=== PATIENT | male | born 1985 | race Asian ===

== ENCOUNTER 2020-01-03 15:48 | Inpatient (IN) | payer BC ==
[~2020-01-03] VITALS: Ht 165.1 cm; Wt 66.0 kg
[2020-01-03 16:40] VITALS: BP 145/71
[2020-01-03] MEDS ORDERED: DIAZEPAM 5 MG TABLET PO PRN (17:00)
[2020-01-03] MEDS ORDERED: OxyCODONE HCL 10 MG IR TABLET PO PRN ×2 (17:00)
[2020-01-03] MEDS: ACETAMINOPHEN 500 MG TABLET PO SCH (18:31)
[2020-01-03] MEDS: OxyCODONE HCL 5 MG IR TABLET PO PRN ×2 (18:43→23:12)
[2020-01-03] MEDS: GABAPENTIN 300 MG CAPSULE PO SCH (20:12)
[2020-01-03] MEDS: SENNA/DOCUSATE SODIUM 8.6-50 MG TABLET PO SCH (20:12)
[2020-01-03] MEDS: DEXAMETHASONE 4 MG TABLET PO SCH (20:39)
[2020-01-03 23:12] VITALS: BP 126/76
[2020-01-04] MEDS: ACETAMINOPHEN 500 MG TABLET PO SCH ×3 (00:31→17:01)
[2020-01-04] MEDS ORDERED: NALOXONE HCL 1 MG/ML 2 ML SYG IVP PRN (01:30)
[2020-01-04] MEDS ORDERED: NALOXONE HCL 0.4 MG/ML VIAL IVP PRN (01:32)
[2020-01-04] MEDS: HYDROmorphone 2 MG/ML SYRINGE IVP PRN ×4 (01:42→21:56)
[2020-01-04] MEDS: OxyCODONE HCL 5 MG IR TABLET PO PRN ×2 (06:14→13:40)
[2020-01-04] MEDS ORDERED: MethylPREDNISolone 4 MG TABLET PO SCH (06:30)
[2020-01-04 07:14] VITALS: BP 132/82
[2020-01-04] MEDS: POLYETHYLENE GLYCOL 3350 17 GM PACKET PO SCH ×2 (07:41→07:45)
[2020-01-04] MEDS: DEXAMETHASONE 4 MG TABLET PO SCH (07:42)
[2020-01-04] MEDS: GABAPENTIN 300 MG CAPSULE PO SCH ×3 (07:42→21:25)
[2020-01-04] MEDS: SENNA/DOCUSATE SODIUM 8.6-50 MG TABLET PO SCH ×2 (07:42→21:25)
[2020-01-04 07:46] LABS: BASOPHILS % (AUTO) 0.2 % (0.0-2.0); EOSINOPHILS % (AUTO) 0 % (1.0-6.0); HEMATOCRIT 27.1 % (41-53); HEMOGLOBIN 9.1 g/dL (13.5-17.5); LYMPHOCYTES # (AUTO) 0.6 K/uL (1.0-4.8); LYMPHOCYTES % (AUTO) 7.8 % (22.0-44.0); MEAN CORPUSCULAR HEMOGLOBIN 28.7 pg (26.0-34.0); MEAN CORPUSCULAR HGB CONC 33.4 G/dL (31.0-37.0); MEAN CORPUSCULAR VOLUME 86 fL (80-100); MONOCYTES # (AUTO) 0.5 K/uL (0.1-1.0); MONOCYTES % (AUTO) 5.6 % (2.0-9.0); NEUTROPHILS # (AUTO) 7.2 K/uL (1.8-7.7); PLATELET COUNT (AUTO) 391 K/uL (150-450); RED BLOOD CELL COUNT(AUTO) 3.16 MIL/uL (4.50-5.90); RED CELL DISTRIBUTION WIDTH 14.6 % (11.5-14.5)
[2020-01-04 07:56] LABS: NEUTROPHILS % (AUTO) 86.4 % (40.0-70.0)
[2020-01-04 08:51] LABS: ALANINE AMINOTRANSFERASE 56 U/L (12-78); ALBUMIN 3.1 g/dL (3.4-5.0); ALKALINE PHOSPHATASE 102 U/L (46-116); ANION GAP 10 mmol/L (8-16); ASPARTATE AMINOTRANSFERASE 26 U/L (15-37); BILIRUBIN,TOTAL 0.3 mg/dL (0.1-1.0); CALCIUM, TOTAL 8.5 mg/dL (8.8-10.5); CARBON DIOXIDE 26 mmol/L (22-29); CHLORIDE 104 mmol/L (98-107); CREATININE 0.66 mg/dL (0.60-1.30); GLOMERULAR FILTR. RATE CALC > 60 mL/min (>60); GLUCOSE,RANDOM 119 mg/dL (70-110); POTASSIUM 3.9 mmol/L (3.5-5.1); SODIUM SERUM 140 mmol/L (136-145); TOTAL PROTEIN, SERUM 6.3 g/dL (6.4-8.2); UREA NITROGEN, BLOOD 21 mg/dL (7-18)
[2020-01-04] MEDS: DULoxetine HCL 30 MG CAPSULE PO SCH (12:08)
[2020-01-04] MEDS ORDERED: OxyCODONE HCL 5 MG IR TABLET PO ONE (14:00)
[2020-01-04] MEDS ORDERED: MethylPREDNISolone 4 MG TABLET PO ONE ×3 (15:00→21:00)
[2020-01-04 15:17] VITALS: BP 121/71
[2020-01-04] MEDS: AMITRIPTYLINE HCL 25 MG TABLET PO SCH (21:25)
[2020-01-05 01:10] VITALS: BP 120/77
[2020-01-05] MEDS: OxyCODONE HCL 5 MG IR TABLET PO PRN ×3 (01:10→10:04)
[2020-01-05] MEDS: ACETAMINOPHEN 500 MG TABLET PO SCH ×3 (01:11→17:25)
[2020-01-05] MEDS ORDERED: MethylPREDNISolone 4 MG TABLET PO SCH ×2 (06:30→12:30)
[2020-01-05 07:48] VITALS: BP 120/76
[2020-01-05] MEDS: GABAPENTIN 300 MG CAPSULE PO SCH ×3 (07:48→20:51)
[2020-01-05] MEDS: POLYETHYLENE GLYCOL 3350 17 GM PACKET PO SCH ×2 (09:00→10:05)
[2020-01-05] MEDS: DULoxetine HCL 30 MG CAPSULE PO SCH (10:05)
[2020-01-05] MEDS: SENNA/DOCUSATE SODIUM 8.6-50 MG TABLET PO SCH ×2 (10:05→20:51)
[2020-01-05] MEDS: HYDROmorphone 2 MG/ML SYRINGE IVP PRN ×4 (10:10→23:43)
[2020-01-05 11:25] VITALS: BP 118/79
[2020-01-05] MEDS ORDERED: MethylPREDNISolone 4 MG TABLET PO ONE ×4 (12:30→21:00)
[2020-01-05 12:51] VITALS: BP 120/82
[2020-01-05] MEDS: OxyCODONE HCL/ACETAMINOPHEN 10-325 MG TABLET PO PRN ×2 (12:51→20:53)
[2020-01-05] MEDS: ENOXAPARIN SODIUM 40 MG/0.4 ML PF SYRINGE SQ SCH (12:52)
[2020-01-05] MEDS ORDERED: OxyCODONE HCL/ACETAMINOPHEN 10-325 MG TABLET PO ONE (13:00)
[2020-01-05 15:39] VITALS: BP 113/67
[2020-01-05] MEDS: AMITRIPTYLINE HCL 25 MG TABLET PO SCH (20:51)
[2020-01-05 23:43] VITALS: BP 106/62
[2020-01-06] MEDS: OxyCODONE HCL/ACETAMINOPHEN 10-325 MG TABLET PO PRN ×3 (01:31→22:52)
[2020-01-06] MEDS: ACETAMINOPHEN 500 MG TABLET PO SCH ×3 (01:31→17:26)
[2020-01-06] MEDS ORDERED: MethylPREDNISolone 4 MG TABLET PO ONE ×4 (06:30→21:00)
[2020-01-06 07:42] VITALS: BP 126/79
[2020-01-06] MEDS: DULoxetine HCL 30 MG CAPSULE PO SCH (07:42)
[2020-01-06] MEDS: GABAPENTIN 300 MG CAPSULE PO SCH ×3 (07:43→21:46)
[2020-01-06] MEDS: ENOXAPARIN SODIUM 40 MG/0.4 ML PF SYRINGE SQ SCH ×2 (07:43→09:08)
[2020-01-06] MEDS: SENNA/DOCUSATE SODIUM 8.6-50 MG TABLET PO SCH ×2 (07:43→21:47)
[2020-01-06] MEDS: HYDROmorphone 2 MG/ML SYRINGE IVP PRN ×5 (08:27→23:45)
[2020-01-06] MEDS: POLYETHYLENE GLYCOL 3350 17 GM PACKET PO SCH (08:57)
[2020-01-06 10:14] LABS: BASOPHILS % (AUTO) 0.2 % (0.0-2.0); EOSINOPHILS % (AUTO) 0.1 % (1.0-6.0); HEMATOCRIT 27.2 % (41-53); HEMOGLOBIN 8.9 g/dL (13.5-17.5); LYMPHOCYTES # (AUTO) 0.4 K/uL (1.0-4.8); LYMPHOCYTES % (AUTO) 4.8 % (22.0-44.0); MEAN CORPUSCULAR HEMOGLOBIN 28.1 pg (26.0-34.0); MEAN CORPUSCULAR HGB CONC 32.8 G/dL (31.0-37.0); MEAN CORPUSCULAR VOLUME 86 fL (80-100); MONOCYTES # (AUTO) 0.8 K/uL (0.1-1.0); MONOCYTES % (AUTO) 8.5 % (2.0-9.0); NEUTROPHILS # (AUTO) 8.1 K/uL (1.8-7.7); PLATELET COUNT (AUTO) 309 K/uL (150-450); RED BLOOD CELL COUNT(AUTO) 3.18 MIL/uL (4.50-5.90); RED CELL DISTRIBUTION WIDTH 15.4 % (11.5-14.5)
[2020-01-06 10:19] LABS: NEUTROPHILS % (AUTO) 86.4 % (40.0-70.0)
[2020-01-06 10:40] LABS: ANION GAP 6 mmol/L (8-16); C-REACTIVE PROTEIN QUANT 7.22 mg/dL (0.00-0.30); CALCIUM, TOTAL 7.5 mg/dL (8.8-10.5); CARBON DIOXIDE 28 mmol/L (22-29); CHLORIDE 102 mmol/L (98-107); CREATININE 0.57 mg/dL (0.60-1.30); GLOMERULAR FILTR. RATE CALC > 60 mL/min (>60); GLUCOSE,RANDOM 98 mg/dL (70-110); POTASSIUM 3.9 mmol/L (3.5-5.1); SODIUM SERUM 136 mmol/L (136-145); UREA NITROGEN, BLOOD 19 mg/dL (7-18)
[2020-01-06 15:00] VITALS: BP 127/66
[2020-01-06] MEDS: BACLOFEN 10 MG TABLET PO SCH ×2 (15:11→21:47)
[2020-01-06] MEDS ORDERED: GADOBUTROL 1 MMOL/ML 10 ML VIAL IVP ONE (17:18)
[2020-01-06] MEDS: AMITRIPTYLINE HCL 25 MG TABLET PO SCH (21:47)
[2020-01-06 23:45] VITALS: BP 113/68
[2020-01-07] MEDS: ACETAMINOPHEN 500 MG TABLET PO SCH ×3 (01:00→17:00)
[2020-01-07] MEDS: HYDROmorphone 2 MG/ML SYRINGE IVP PRN ×7 (02:45→22:59)
[2020-01-07] MEDS: OxyCODONE HCL/ACETAMINOPHEN 10-325 MG TABLET PO PRN ×4 (03:58→18:36)
[2020-01-07] MEDS ORDERED: MethylPREDNISolone 4 MG TABLET PO ONE ×3 (06:30→21:00)
[2020-01-07] MEDS: BACLOFEN 10 MG TABLET PO SCH ×4 (07:23→22:29)
[2020-01-07] MEDS: GABAPENTIN 300 MG CAPSULE PO SCH ×4 (07:23→22:28)
[2020-01-07 07:24] VITALS: BP 114/73
[2020-01-07] MEDS: DULoxetine HCL 30 MG CAPSULE PO SCH (10:38)
[2020-01-07] MEDS: POLYETHYLENE GLYCOL 3350 17 GM PACKET PO SCH (10:38)
[2020-01-07] MEDS: SENNA/DOCUSATE SODIUM 8.6-50 MG TABLET PO SCH ×2 (10:38→21:33)
[2020-01-07 15:00] VITALS: BP 129/71
[2020-01-07 21:20] VITALS: BP 129/77
[2020-01-07] MEDS: AMITRIPTYLINE HCL 25 MG TABLET PO SCH (21:33)
[2020-01-07 22:59] VITALS: BP 133/76
[2020-01-08] VITALS (11 sets, daily range): BP systolic 121–136; BP diastolic 68–87
[2020-01-08] MEDS: OxyCODONE HCL/ACETAMINOPHEN 10-325 MG TABLET PO PRN ×3 (00:21→12:43)
[2020-01-08] MEDS: ACETAMINOPHEN 500 MG TABLET PO SCH ×3 (01:02→17:00)
[2020-01-08] MEDS: HYDROmorphone 2 MG/ML SYRINGE IVP PRN ×9 (01:03→23:15)
[2020-01-08] MEDS ORDERED: MethylPREDNISolone 4 MG TABLET PO ONE ×2 (06:30→21:00)
[2020-01-08] MEDS: DULoxetine HCL 30 MG CAPSULE PO SCH (08:51)
[2020-01-08] MEDS: SENNA/DOCUSATE SODIUM 8.6-50 MG TABLET PO SCH ×2 (08:51→20:15)
[2020-01-08] MEDS: GABAPENTIN 300 MG CAPSULE PO SCH ×3 (08:51→20:15)
[2020-01-08] MEDS: MULTIVITAMINS WITH MINERALS, THERAPEUTIC TABLET PO SCH (08:51)
[2020-01-08] MEDS: BACLOFEN 10 MG TABLET PO SCH ×3 (08:52→20:16)
[2020-01-08] MEDS: POLYETHYLENE GLYCOL 3350 17 GM PACKET PO SCH (08:52)
[2020-01-08] MEDS ORDERED: DOCUSATE SODIUM 283 MG/5 ML MINI-ENEMA PR PRN (10:00)
[2020-01-08] MEDS: DOCUSATE SODIUM 250 MG CAPSULE PO SCH ×2 (12:28→20:15)
[2020-01-08 17:43] LABS: BASOPHILS % (AUTO) 0.5 % (0.0-2.0); EOSINOPHILS % (AUTO) 1.4 % (1.0-6.0); HEMATOCRIT 29.6 % (41-53); HEMOGLOBIN 9.7 g/dL (13.5-17.5); LYMPHOCYTES # (AUTO) 0.5 K/uL (1.0-4.8); LYMPHOCYTES % (AUTO) 12.2 % (22.0-44.0); MEAN CORPUSCULAR HEMOGLOBIN 27.9 pg (26.0-34.0); MEAN CORPUSCULAR HGB CONC 32.8 G/dL (31.0-37.0); MEAN CORPUSCULAR VOLUME 85 fL (80-100); MONOCYTES # (AUTO) 0.3 K/uL (0.1-1.0); MONOCYTES % (AUTO) 7.7 % (2.0-9.0); NEUTROPHILS # (AUTO) 3.4 K/uL (1.8-7.7); NEUTROPHILS % (AUTO) 78.2 % (40.0-70.0); PLATELET COUNT (AUTO) 326 K/uL (150-450); RED BLOOD CELL COUNT(AUTO) 3.48 MIL/uL (4.50-5.90); RED CELL DISTRIBUTION WIDTH 15.2 % (11.5-14.5)
[2020-01-08 17:56] LABS: ANION GAP 1 mmol/L (8-16); CALCIUM, TOTAL 8.2 mg/dL (8.8-10.5); CARBON DIOXIDE 28 mmol/L (22-29); CHLORIDE 101 mmol/L (98-107); CREATININE 0.86 mg/dL (0.60-1.30); GLOMERULAR FILTR. RATE CALC > 60 mL/min (>60); GLUCOSE,RANDOM 177 mg/dL (70-110); POTASSIUM 3.4 mmol/L (3.5-5.1); SODIUM SERUM 130 mmol/L (136-145); UREA NITROGEN, BLOOD 24 mg/dL (7-18)
[2020-01-08 18:13] LABS: C-REACTIVE PROTEIN QUANT 2.21 mg/dL (0.00-0.30)
[2020-01-08] MEDS: DEXAMETHASONE SOD PHOS 4 MG/ML VIAL IVP SCH ×2 (18:29→23:15)
[2020-01-08 18:55] LABS: ERYTHROCYTE SEDIMENTATION RATE 60 MM/HR (0-15)
[2020-01-08] MEDS: AMITRIPTYLINE HCL 25 MG TABLET PO SCH (20:15)
[2020-01-08] MEDS: SENNA 187 MG TABLET PO SCH (20:19)
[2020-01-08] MEDS ORDERED: POTASSIUM CHLORIDE 20 MEQ ER TABLET PO ONE (22:00)
[2020-01-09] VITALS (8 sets, daily range): BP systolic 120–133; BP diastolic 68–83
[2020-01-09] MEDS: HYDROmorphone 2 MG/ML SYRINGE IVP PRN ×3 (02:00→09:50)
[2020-01-09] MEDS: ACETAMINOPHEN 500 MG TABLET PO SCH ×3 (02:01→17:00)
[2020-01-09] MEDS: DEXAMETHASONE SOD PHOS 4 MG/ML VIAL IVP SCH ×3 (06:00→18:40)
[2020-01-09] MEDS ORDERED: MethylPREDNISolone 4 MG TABLET PO ONE (06:30)
[2020-01-09] MEDS ORDERED: PNEUMOCOCCAL VACCINE POLYVALENT 0.5 ML VIAL [PPSV23] IM ONE (07:45)
[2020-01-09 07:58] LABS: ANION GAP 10 mmol/L (8-16); CALCIUM, TOTAL 8.2 mg/dL (8.8-10.5); CARBON DIOXIDE 26 mmol/L (22-29); CHLORIDE 101 mmol/L (98-107); CREATININE 0.57 mg/dL (0.60-1.30); GLOMERULAR FILTR. RATE CALC > 60 mL/min (>60); GLUCOSE,RANDOM 135 mg/dL (70-110); POTASSIUM 4.6 mmol/L (3.5-5.1); SODIUM SERUM 137 mmol/L (136-145); UREA NITROGEN, BLOOD 18 mg/dL (7-18)
[2020-01-09] MEDS: POLYETHYLENE GLYCOL 3350 17 GM PACKET PO SCH (09:00)
[2020-01-09] MEDS: DOCUSATE SODIUM 250 MG CAPSULE PO SCH ×2 (09:12→20:16)
[2020-01-09] MEDS: MULTIVITAMINS WITH MINERALS, THERAPEUTIC TABLET PO SCH (09:12)
[2020-01-09] MEDS: BACLOFEN 10 MG TABLET PO SCH ×3 (09:13→20:17)
[2020-01-09] MEDS: SENNA/DOCUSATE SODIUM 8.6-50 MG TABLET PO SCH ×2 (09:16→20:20)
[2020-01-09] MEDS: GABAPENTIN 300 MG CAPSULE PO SCH ×3 (09:35→20:17)
[2020-01-09] MEDS: DULoxetine HCL 30 MG CAPSULE PO SCH (09:35)
[2020-01-09] MEDS: CALCIUM CIT/VITAMIN D3 200 MG-250 UNITS TABLET PO SCH (14:18)
[2020-01-09] MEDS: MORPHINE SULFATE 15 MG IR TABLET PO PRN ×2 (16:31→21:43)
[2020-01-09] MEDS: SENNA 187 MG TABLET PO SCH ×2 (20:17→20:20)
[2020-01-09] MEDS: AMITRIPTYLINE HCL 25 MG TABLET PO SCH (20:17)
[2020-01-09] MEDS: MORPHINE SULFATE 15 MG ER TABLET PO SCH (20:17)
[2020-01-10] VITALS (9 sets, daily range): BP systolic 116–138; BP diastolic 61–91
[2020-01-10] MEDS: DEXAMETHASONE SOD PHOS 4 MG/ML VIAL IVP SCH ×5 (00:36→23:33)
[2020-01-10] MEDS: ACETAMINOPHEN 500 MG TABLET PO SCH ×4 (00:37→23:33)
[2020-01-10] MEDS: MORPHINE SULFATE 15 MG IR TABLET PO PRN (06:34)
[2020-01-10 07:29] LABS: BASOPHILS % (AUTO) 0.1 % (0.0-2.0); EOSINOPHILS % (AUTO) 0.1 % (1.0-6.0); HEMATOCRIT 28.8 % (41-53); HEMOGLOBIN 9.7 g/dL (13.5-17.5); LYMPHOCYTES # (AUTO) 0.5 K/uL (1.0-4.8); LYMPHOCYTES % (AUTO) 10.9 % (22.0-44.0); MEAN CORPUSCULAR HEMOGLOBIN 28.5 pg (26.0-34.0); MEAN CORPUSCULAR HGB CONC 33.8 G/dL (31.0-37.0); MEAN CORPUSCULAR VOLUME 84 fL (80-100); MONOCYTES # (AUTO) 0.3 K/uL (0.1-1.0); NEUTROPHILS % (AUTO) 81.9 % (40.0-70.0); PLATELET COUNT (AUTO) 330 K/uL (150-450); RED BLOOD CELL COUNT(AUTO) 3.41 MIL/uL (4.50-5.90); RED CELL DISTRIBUTION WIDTH 15.4 % (11.5-14.5)
[2020-01-10 07:52] LABS: ANION GAP 9 mmol/L (8-16); CALCIUM, TOTAL 8.5 mg/dL (8.8-10.5); CARBON DIOXIDE 26 mmol/L (22-29); CHLORIDE 104 mmol/L (98-107); CREATININE 0.46 mg/dL (0.60-1.30); GLOMERULAR FILTR. RATE CALC > 60 mL/min (>60); GLUCOSE,RANDOM 126 mg/dL (70-110); POTASSIUM 3.9 mmol/L (3.5-5.1); SODIUM SERUM 139 mmol/L (136-145); UREA NITROGEN, BLOOD 18 mg/dL (7-18)
[2020-01-10] MEDS: SENNA/DOCUSATE SODIUM 8.6-50 MG TABLET PO SCH ×2 (08:11→20:46)
[2020-01-10] MEDS: BACLOFEN 10 MG TABLET PO SCH ×3 (08:12→20:37)
[2020-01-10] MEDS: MULTIVITAMINS WITH MINERALS, THERAPEUTIC TABLET PO SCH (08:12)
[2020-01-10] MEDS: DULoxetine HCL 60 MG CAPSULE PO SCH (08:12)
[2020-01-10] MEDS: DOCUSATE SODIUM 250 MG CAPSULE PO SCH ×3 (08:12→20:48)
[2020-01-10] MEDS: GABAPENTIN 300 MG CAPSULE PO SCH ×3 (08:12→20:37)
[2020-01-10] MEDS: POLYETHYLENE GLYCOL 3350 17 GM PACKET PO SCH (09:00)
[2020-01-10] MEDS: CALCIUM CIT/VITAMIN D3 200 MG-250 UNITS TABLET PO SCH (09:00)
[2020-01-10] MEDS: MORPHINE SULFATE 15 MG ER TABLET PO SCH ×2 (09:01→20:37)
[2020-01-10] MEDS: ENOXAPARIN SODIUM 40 MG/0.4 ML PF SYRINGE SQ SCH (13:21)
[2020-01-10] MEDS: AMITRIPTYLINE HCL 25 MG TABLET PO SCH (20:37)
[2020-01-10] MEDS: SENNA 187 MG TABLET PO SCH ×2 (20:37→21:00)
[2020-01-11 00:35] VITALS: BP 129/81
[2020-01-11] MEDS: MORPHINE SULFATE 15 MG IR TABLET PO PRN ×2 (00:35→21:41)
[2020-01-11 05:06] VITALS: BP 121/78
[2020-01-11] MEDS: DEXAMETHASONE SOD PHOS 4 MG/ML VIAL IVP SCH ×3 (06:02→23:20)
[2020-01-11] MEDS: POLYETHYLENE GLYCOL 3350 17 GM PACKET PO SCH (09:00)
[2020-01-11] MEDS: CALCIUM CIT/VITAMIN D3 200 MG-250 UNITS TABLET PO SCH (09:02)
[2020-01-11] MEDS: DOCUSATE SODIUM 250 MG CAPSULE PO SCH ×2 (09:03→20:54)
[2020-01-11] MEDS: ACETAMINOPHEN 500 MG TABLET PO SCH ×3 (09:03→23:20)
[2020-01-11] MEDS: DULoxetine HCL 60 MG CAPSULE PO SCH (09:03)
[2020-01-11] MEDS: GABAPENTIN 300 MG CAPSULE PO SCH ×3 (09:03→20:54)
[2020-01-11] MEDS: BACLOFEN 10 MG TABLET PO SCH ×3 (09:03→20:54)
[2020-01-11] MEDS: MORPHINE SULFATE 15 MG ER TABLET PO SCH ×2 (09:03→20:53)
[2020-01-11] MEDS: ENOXAPARIN SODIUM 40 MG/0.4 ML PF SYRINGE SQ SCH (09:04)
[2020-01-11] MEDS: MULTIVITAMINS WITH MINERALS, THERAPEUTIC TABLET PO SCH (09:04)
[2020-01-11 14:32] VITALS: BP 114/64
[2020-01-11 15:00] VITALS: BP 140/88
[2020-01-11 17:10] VITALS: BP 138/74
[2020-01-11] MEDS: AMITRIPTYLINE HCL 25 MG TABLET PO SCH (20:54)
[2020-01-11] MEDS: SENNA 187 MG TABLET PO SCH (20:55)
[2020-01-11 21:00] VITALS: BP 128/74
[2020-01-12] VITALS (7 sets, daily range): BP systolic 127–144; BP diastolic 3–92
[2020-01-12] MEDS: MORPHINE SULFATE 15 MG IR TABLET PO PRN ×2 (06:03→13:46)
[2020-01-12] MEDS: DULoxetine HCL 60 MG CAPSULE PO SCH (07:50)
[2020-01-12] MEDS: DOCUSATE SODIUM 250 MG CAPSULE PO SCH ×2 (07:50→20:07)
[2020-01-12] MEDS: ACETAMINOPHEN 500 MG TABLET PO SCH ×3 (07:51→23:45)
[2020-01-12] MEDS: BACLOFEN 10 MG TABLET PO SCH ×3 (07:51→20:07)
[2020-01-12] MEDS: GABAPENTIN 300 MG CAPSULE PO SCH ×3 (07:51→20:07)
[2020-01-12] MEDS: CALCIUM CIT/VITAMIN D3 200 MG-250 UNITS TABLET PO SCH (07:52)
[2020-01-12] MEDS: MULTIVITAMINS WITH MINERALS, THERAPEUTIC TABLET PO SCH (07:52)
[2020-01-12] MEDS: ENOXAPARIN SODIUM 40 MG/0.4 ML PF SYRINGE SQ SCH (07:52)
[2020-01-12] MEDS: DEXAMETHASONE SOD PHOS 4 MG/ML VIAL IVP SCH ×3 (07:52→23:45)
[2020-01-12] MEDS: MORPHINE SULFATE 15 MG ER TABLET PO SCH ×2 (08:01→20:10)
[2020-01-12] MEDS: POLYETHYLENE GLYCOL 3350 17 GM PACKET PO SCH (08:36)
[2020-01-12] MEDS: AMITRIPTYLINE HCL 25 MG TABLET PO SCH (20:07)
[2020-01-12] MEDS: SENNA 187 MG TABLET PO SCH (20:11)
[2020-01-13] VITALS (7 sets, daily range): BP systolic 124–134; BP diastolic 78–88
[2020-01-13] MEDS: MORPHINE SULFATE 15 MG ER TABLET PO SCH ×2 (07:34→20:21)
[2020-01-13] MEDS: DEXAMETHASONE SOD PHOS 4 MG/ML VIAL IVP SCH ×3 (07:34→23:51)
[2020-01-13] MEDS: BACLOFEN 10 MG TABLET PO SCH ×3 (07:37→20:21)
[2020-01-13] MEDS: GABAPENTIN 300 MG CAPSULE PO SCH ×3 (07:37→20:20)
[2020-01-13] MEDS: POLYETHYLENE GLYCOL 3350 17 GM PACKET PO SCH (07:37)
[2020-01-13] MEDS: MULTIVITAMINS WITH MINERALS, THERAPEUTIC TABLET PO SCH (07:38)
[2020-01-13] MEDS: DOCUSATE SODIUM 250 MG CAPSULE PO SCH ×2 (07:38→20:20)
[2020-01-13] MEDS: ENOXAPARIN SODIUM 40 MG/0.4 ML PF SYRINGE SQ SCH (07:38)
[2020-01-13] MEDS: DULoxetine HCL 60 MG CAPSULE PO SCH (07:38)
[2020-01-13] MEDS: CALCIUM CIT/VITAMIN D3 200 MG-250 UNITS TABLET PO SCH (07:38)
[2020-01-13] MEDS: ACETAMINOPHEN 500 MG TABLET PO SCH ×3 (07:42→23:51)
[2020-01-13] MEDS: MORPHINE SULFATE 15 MG IR TABLET PO PRN (08:32)
[2020-01-13] MEDS: SENNA 187 MG TABLET PO SCH (20:20)
[2020-01-13] MEDS: AMITRIPTYLINE HCL 25 MG TABLET PO SCH (20:21)
[2020-01-14] VITALS (9 sets, daily range): BP systolic 120–145; BP diastolic 72–92
[2020-01-14] MEDS: MORPHINE SULFATE 15 MG IR TABLET PO PRN ×3 (00:07→13:36)
[2020-01-14] MEDS ORDERED: MethylPREDNISolone 4 MG TABLET PO ONE ×4 (06:30→21:00)
[2020-01-14] MEDS: BACLOFEN 10 MG TABLET PO SCH ×3 (08:03→20:17)
[2020-01-14] MEDS: GABAPENTIN 300 MG CAPSULE PO SCH ×3 (08:03→20:17)
[2020-01-14] MEDS: DOCUSATE SODIUM 250 MG CAPSULE PO SCH ×2 (08:03→20:17)
[2020-01-14] MEDS: DULoxetine HCL 60 MG CAPSULE PO SCH (08:03)
[2020-01-14] MEDS: MULTIVITAMINS WITH MINERALS, THERAPEUTIC TABLET PO SCH (08:03)
[2020-01-14] MEDS: CALCIUM CIT/VITAMIN D3 200 MG-250 UNITS TABLET PO SCH (08:03)
[2020-01-14] MEDS: ACETAMINOPHEN 500 MG TABLET PO SCH ×2 (08:03→15:06)
[2020-01-14] MEDS: ENOXAPARIN SODIUM 40 MG/0.4 ML PF SYRINGE SQ SCH (08:04)
[2020-01-14] MEDS: POLYETHYLENE GLYCOL 3350 17 GM PACKET PO SCH ×2 (08:04→09:00)
[2020-01-14] MEDS: MORPHINE SULFATE 15 MG ER TABLET PO SCH ×3 (09:00→21:06)
[2020-01-14] MEDS: SENNA 187 MG TABLET PO SCH (20:16)
[2020-01-14] MEDS: AMITRIPTYLINE HCL 25 MG TABLET PO SCH (20:17)
[2020-01-15] VITALS (7 sets, daily range): BP systolic 126–139; BP diastolic 79–89
[2020-01-15] MEDS: ACETAMINOPHEN 500 MG TABLET PO SCH ×4 (00:13→23:07)
[2020-01-15] MEDS: MORPHINE SULFATE 15 MG IR TABLET PO PRN ×4 (00:25→23:07)
[2020-01-15] MEDS ORDERED: MethylPREDNISolone 4 MG TABLET PO ONE ×4 (06:30→21:00)
[2020-01-15] MEDS: GABAPENTIN 300 MG CAPSULE PO SCH ×3 (07:10→20:59)
[2020-01-15] MEDS: CALCIUM CIT/VITAMIN D3 200 MG-250 UNITS TABLET PO SCH (08:40)
[2020-01-15] MEDS: MULTIVITAMINS WITH MINERALS, THERAPEUTIC TABLET PO SCH (08:40)
[2020-01-15] MEDS: DOCUSATE SODIUM 250 MG CAPSULE PO SCH ×2 (08:40→20:58)
[2020-01-15] MEDS: POLYETHYLENE GLYCOL 3350 17 GM PACKET PO SCH (08:40)
[2020-01-15] MEDS: DULoxetine HCL 60 MG CAPSULE PO SCH (08:40)
[2020-01-15] MEDS: BACLOFEN 10 MG TABLET PO SCH ×3 (08:40→20:59)
[2020-01-15] MEDS: ENOXAPARIN SODIUM 40 MG/0.4 ML PF SYRINGE SQ SCH (08:41)
[2020-01-15] MEDS: MORPHINE SULFATE 15 MG ER TABLET PO SCH ×2 (09:07→20:59)
[2020-01-15] MEDS: AMITRIPTYLINE HCL 25 MG TABLET PO SCH (20:58)
[2020-01-15] MEDS: SENNA 187 MG TABLET PO SCH (20:59)
[2020-01-16 05:30] VITALS: BP 126/76
[2020-01-16] MEDS ORDERED: BACLOFEN 10 MG TABLET PO SCH (06:00)
[2020-01-16] MEDS ORDERED: GABAPENTIN 300 MG CAPSULE PO SCH (06:00)
[2020-01-16] MEDS: GABAPENTIN 300 MG CAPSULE PO SCH ×3 (06:13→20:01)
[2020-01-16] MEDS: BACLOFEN 10 MG TABLET PO SCH ×3 (06:13→20:02)
[2020-01-16] MEDS ORDERED: MethylPREDNISolone 4 MG TABLET PO ONE ×3 (06:30→21:00)
[2020-01-16 07:05] VITALS: BP 127/74
[2020-01-16] MEDS: POLYETHYLENE GLYCOL 3350 17 GM PACKET PO SCH (09:00)
[2020-01-16] MEDS: MULTIVITAMINS WITH MINERALS, THERAPEUTIC TABLET PO SCH (09:07)
[2020-01-16] MEDS: DOCUSATE SODIUM 250 MG CAPSULE PO SCH ×2 (09:07→20:02)
[2020-01-16] MEDS: ENOXAPARIN SODIUM 40 MG/0.4 ML PF SYRINGE SQ SCH (09:07)
[2020-01-16] MEDS: DULoxetine HCL 60 MG CAPSULE PO SCH (09:07)
[2020-01-16] MEDS: MORPHINE SULFATE 15 MG ER TABLET PO SCH ×2 (09:07→20:01)
[2020-01-16] MEDS: CALCIUM CIT/VITAMIN D3 200 MG-250 UNITS TABLET PO SCH (09:08)
[2020-01-16] MEDS: ACETAMINOPHEN 500 MG TABLET PO SCH ×3 (09:08→23:07)
[2020-01-16] MEDS: MethylPREDNISolone 4 MG TABLET PO ONE ×2 (14:40→15:19)
[2020-01-16 15:20] VITALS: BP 140/85
[2020-01-16] MEDS: MORPHINE SULFATE 15 MG IR TABLET PO PRN ×2 (15:20→21:38)
[2020-01-16 19:00] VITALS: BP 136/80
[2020-01-16] MEDS: AMITRIPTYLINE HCL 25 MG TABLET PO SCH (20:01)
[2020-01-16] MEDS: SENNA 187 MG TABLET PO SCH (20:02)
[2020-01-16 23:28] VITALS: BP 113/66
[2020-01-17] MEDS: BACLOFEN 10 MG TABLET PO SCH ×3 (05:42→20:34)
[2020-01-17] MEDS: GABAPENTIN 300 MG CAPSULE PO SCH ×3 (05:42→20:33)
[2020-01-17 06:02] VITALS: BP 120/75
[2020-01-17] MEDS ORDERED: MethylPREDNISolone 4 MG TABLET PO ONE ×3 (06:30→21:00)
[2020-01-17] MEDS: MORPHINE SULFATE 15 MG IR TABLET PO PRN ×2 (06:38→17:50)
[2020-01-17 07:38] VITALS: BP 125/81
[2020-01-17] MEDS: CALCIUM CIT/VITAMIN D3 200 MG-250 UNITS TABLET PO SCH (08:39)
[2020-01-17] MEDS: ACETAMINOPHEN 500 MG TABLET PO SCH ×3 (08:39→23:23)
[2020-01-17] MEDS: ENOXAPARIN SODIUM 40 MG/0.4 ML PF SYRINGE SQ SCH (08:39)
[2020-01-17] MEDS: MULTIVITAMINS WITH MINERALS, THERAPEUTIC TABLET PO SCH (08:39)
[2020-01-17] MEDS: DULoxetine HCL 60 MG CAPSULE PO SCH (08:39)
[2020-01-17] MEDS: DOCUSATE SODIUM 250 MG CAPSULE PO SCH ×2 (08:39→20:33)
[2020-01-17] MEDS: POLYETHYLENE GLYCOL 3350 17 GM PACKET PO SCH ×2 (08:40→09:00)
[2020-01-17] MEDS: MORPHINE SULFATE 15 MG ER TABLET PO SCH ×3 (08:40→20:33)
[2020-01-17 12:30] VITALS: BP 133/85
[2020-01-17 15:44] VITALS: BP 131/80
[2020-01-17 20:34] VITALS: BP 133/86
[2020-01-17] MEDS: SENNA 187 MG TABLET PO SCH (20:34)
[2020-01-17] MEDS: AMITRIPTYLINE HCL 25 MG TABLET PO SCH (20:34)
[2020-01-18] VITALS (7 sets, daily range): BP systolic 126–142; BP diastolic 73–87
[2020-01-18] MEDS: MORPHINE SULFATE 15 MG IR TABLET PO PRN ×5 (01:51→23:51)
[2020-01-18] MEDS: BACLOFEN 10 MG TABLET PO SCH ×3 (06:17→20:46)
[2020-01-18] MEDS: GABAPENTIN 300 MG CAPSULE PO SCH ×3 (06:17→21:32)
[2020-01-18] MEDS ORDERED: MethylPREDNISolone 4 MG TABLET PO ONE ×2 (06:30→21:00)
[2020-01-18 07:47] LABS: BASOPHILS % (AUTO) 0.5 % (0.0-2.0); EOSINOPHILS % (AUTO) 0.8 % (1.0-6.0); HEMATOCRIT 29.4 % (41-53); HEMOGLOBIN 9.6 g/dL (13.5-17.5); LYMPHOCYTES # (AUTO) 0.5 K/uL (1.0-4.8); LYMPHOCYTES % (AUTO) 10.3 % (22.0-44.0); MEAN CORPUSCULAR HEMOGLOBIN 28.4 pg (26.0-34.0); MEAN CORPUSCULAR HGB CONC 32.8 G/dL (31.0-37.0); MEAN CORPUSCULAR VOLUME 87 fL (80-100); MONOCYTES # (AUTO) 0.5 K/uL (0.1-1.0); MONOCYTES % (AUTO) 9.3 % (2.0-9.0); NEUTROPHILS # (AUTO) 3.9 K/uL (1.8-7.7); NEUTROPHILS % (AUTO) 79.1 % (40.0-70.0); PLATELET COUNT (AUTO) 217 K/uL (150-450); RED CELL DISTRIBUTION WIDTH 16.8 % (11.5-14.5)
[2020-01-18 08:02] LABS: ALANINE AMINOTRANSFERASE 26 U/L (12-78); ALBUMIN 2.8 g/dL (3.4-5.0); ALKALINE PHOSPHATASE 106 U/L (46-116); ANION GAP 8 mmol/L (8-16); ASPARTATE AMINOTRANSFERASE 12 U/L (15-37); BILIRUBIN,TOTAL 0.4 mg/dL (0.1-1.0); CALCIUM, TOTAL 7.8 mg/dL (8.8-10.5); CARBON DIOXIDE 28 mmol/L (22-29); CHLORIDE 105 mmol/L (98-107); CREATININE 0.34 mg/dL (0.60-1.30); GLOMERULAR FILTR. RATE CALC > 60 mL/min (>60); GLUCOSE,RANDOM 102 mg/dL (70-110); POTASSIUM 4.4 mmol/L (3.5-5.1); SODIUM SERUM 141 mmol/L (136-145); TOTAL PROTEIN, SERUM 5.9 g/dL (6.4-8.2); UREA NITROGEN, BLOOD 16 mg/dL (7-18)
[2020-01-18] MEDS: MORPHINE SULFATE 15 MG ER TABLET PO SCH ×2 (08:18→20:46)
[2020-01-18] MEDS: DULoxetine HCL 60 MG CAPSULE PO SCH (08:20)
[2020-01-18] MEDS: ACETAMINOPHEN 500 MG TABLET PO SCH ×3 (08:21→23:51)
[2020-01-18] MEDS: POLYETHYLENE GLYCOL 3350 17 GM PACKET PO SCH ×2 (09:00→10:14)
[2020-01-18 09:19] LABS: C-REACTIVE PROTEIN QUANT 2.67 mg/dL (0.00-0.30)
[2020-01-18] MEDS: ENOXAPARIN SODIUM 40 MG/0.4 ML PF SYRINGE SQ SCH (10:14)
[2020-01-18] MEDS: CALCIUM CIT/VITAMIN D3 200 MG-250 UNITS TABLET PO SCH (10:14)
[2020-01-18] MEDS: MULTIVITAMINS WITH MINERALS, THERAPEUTIC TABLET PO SCH (10:15)
[2020-01-18] MEDS: DOCUSATE SODIUM 250 MG CAPSULE PO SCH ×2 (10:15→20:46)
[2020-01-18] MEDS: SENNA 187 MG TABLET PO SCH ×2 (20:46→21:00)
[2020-01-18] MEDS: AMITRIPTYLINE HCL 25 MG TABLET PO SCH (20:47)
[2020-01-19 03:31] VITALS: BP 128/71
[2020-01-19] MEDS: MORPHINE SULFATE 15 MG IR TABLET PO PRN ×4 (03:31→22:15)
[2020-01-19] MEDS: GABAPENTIN 300 MG CAPSULE PO SCH ×3 (05:52→19:34)
[2020-01-19] MEDS: BACLOFEN 10 MG TABLET PO SCH ×3 (05:52→19:35)
[2020-01-19] MEDS ORDERED: MethylPREDNISolone 4 MG TABLET PO ONE (06:30)
[2020-01-19] MEDS: ACETAMINOPHEN 500 MG TABLET PO SCH ×3 (07:10→23:59)
[2020-01-19 07:18] VITALS: BP 128/83
[2020-01-19] MEDS: DULoxetine HCL 60 MG CAPSULE PO SCH (07:50)
[2020-01-19] MEDS: CALCIUM CIT/VITAMIN D3 200 MG-250 UNITS TABLET PO SCH (08:46)
[2020-01-19] MEDS: ENOXAPARIN SODIUM 40 MG/0.4 ML PF SYRINGE SQ SCH (08:46)
[2020-01-19] MEDS: DOCUSATE SODIUM 250 MG CAPSULE PO SCH ×2 (08:46→20:57)
[2020-01-19] MEDS: MORPHINE SULFATE 15 MG ER TABLET PO SCH ×2 (08:46→20:56)
[2020-01-19] MEDS: MULTIVITAMINS WITH MINERALS, THERAPEUTIC TABLET PO SCH (08:46)
[2020-01-19] MEDS: POLYETHYLENE GLYCOL 3350 17 GM PACKET PO SCH (08:47)
[2020-01-19 12:25] VITALS: BP 136/81
[2020-01-19 15:55] VITALS: BP 128/80
[2020-01-19 19:41] VITALS: BP 128/88
[2020-01-19] MEDS: AMITRIPTYLINE HCL 25 MG TABLET PO SCH (20:57)
[2020-01-19] MEDS: SENNA 187 MG TABLET PO SCH (20:57)
[2020-01-20] VITALS (7 sets, daily range): BP systolic 120–146; BP diastolic 65–82
[2020-01-20] MEDS: MORPHINE SULFATE 15 MG IR TABLET PO PRN ×5 (04:19→23:17)
[2020-01-20] MEDS: GABAPENTIN 300 MG CAPSULE PO SCH ×3 (05:57→20:28)
[2020-01-20] MEDS: BACLOFEN 10 MG TABLET PO SCH ×3 (05:58→20:28)
[2020-01-20] MEDS: ACETAMINOPHEN 500 MG TABLET PO SCH ×3 (07:05→23:09)
[2020-01-20] MEDS: DULoxetine HCL 60 MG CAPSULE PO SCH (08:15)
[2020-01-20] MEDS: MULTIVITAMINS WITH MINERALS, THERAPEUTIC TABLET PO SCH (08:15)
[2020-01-20] MEDS: DOCUSATE SODIUM 250 MG CAPSULE PO SCH ×2 (08:15→20:27)
[2020-01-20] MEDS: CALCIUM CIT/VITAMIN D3 200 MG-250 UNITS TABLET PO SCH (08:15)
[2020-01-20] MEDS: ENOXAPARIN SODIUM 40 MG/0.4 ML PF SYRINGE SQ SCH (08:15)
[2020-01-20] MEDS: POLYETHYLENE GLYCOL 3350 17 GM PACKET PO SCH (08:15)
[2020-01-20] MEDS: MORPHINE SULFATE 15 MG ER TABLET PO SCH ×2 (09:19→20:28)
[2020-01-20] MEDS: SENNA 187 MG TABLET PO SCH (20:27)
[2020-01-20] MEDS: AMITRIPTYLINE HCL 25 MG TABLET PO SCH (20:28)
[2020-01-21 04:41] VITALS: BP 133/68
[2020-01-21] MEDS: MORPHINE SULFATE 15 MG IR TABLET PO PRN ×3 (04:41→19:12)
[2020-01-21] MEDS: GABAPENTIN 300 MG CAPSULE PO SCH ×3 (06:04→21:02)
[2020-01-21] MEDS: BACLOFEN 10 MG TABLET PO SCH ×3 (06:04→21:02)
[2020-01-21 07:08] VITALS: BP 129/78
[2020-01-21] MEDS: ACETAMINOPHEN 500 MG TABLET PO SCH ×2 (07:08→15:22)
[2020-01-21] MEDS: ENOXAPARIN SODIUM 40 MG/0.4 ML PF SYRINGE SQ SCH (08:03)
[2020-01-21] MEDS: MULTIVITAMINS WITH MINERALS, THERAPEUTIC TABLET PO SCH (08:03)
[2020-01-21] MEDS: DOCUSATE SODIUM 250 MG CAPSULE PO SCH ×2 (08:03→21:01)
[2020-01-21] MEDS: CALCIUM CIT/VITAMIN D3 200 MG-250 UNITS TABLET PO SCH (08:04)
[2020-01-21] MEDS: DULoxetine HCL 60 MG CAPSULE PO SCH (08:04)
[2020-01-21] MEDS: MORPHINE SULFATE 15 MG ER TABLET PO SCH ×2 (08:04→21:01)
[2020-01-21] MEDS: POLYETHYLENE GLYCOL 3350 17 GM PACKET PO SCH (08:16)
[2020-01-21 11:46] VITALS: BP 123/71
[2020-01-21] MEDS ORDERED: MORPHINE SULFATE 15 MG IR TABLET PO PRN (12:30)
[2020-01-21 15:15] VITALS: BP 141/86
[2020-01-21] MEDS: SENNA 187 MG TABLET PO SCH (21:01)
[2020-01-21 21:02] VITALS: BP 130/76
[2020-01-21] MEDS: AMITRIPTYLINE HCL 25 MG TABLET PO SCH (21:02)
[2020-01-22] MEDS: ACETAMINOPHEN 500 MG TABLET PO SCH ×3 (00:02→15:08)
[2020-01-22 00:32] VITALS: BP 116/76
[2020-01-22] MEDS: BACLOFEN 10 MG TABLET PO SCH (06:00)
[2020-01-22] MEDS: GABAPENTIN 300 MG CAPSULE PO SCH ×3 (06:00→20:19)
[2020-01-22 06:11] VITALS: BP 128/80
[2020-01-22 07:19] VITALS: BP 104/55
[2020-01-22] MEDS: POLYETHYLENE GLYCOL 3350 17 GM PACKET PO SCH (08:55)
[2020-01-22] MEDS: ENOXAPARIN SODIUM 40 MG/0.4 ML PF SYRINGE SQ SCH (08:55)
[2020-01-22] MEDS: MORPHINE SULFATE 15 MG ER TABLET PO SCH ×2 (08:55→20:19)
[2020-01-22] MEDS: CALCIUM CIT/VITAMIN D3 200 MG-250 UNITS TABLET PO SCH (08:56)
[2020-01-22] MEDS: DULoxetine HCL 60 MG CAPSULE PO SCH (08:56)
[2020-01-22] MEDS: DOCUSATE SODIUM 250 MG CAPSULE PO SCH ×2 (08:56→20:19)
[2020-01-22] MEDS: MULTIVITAMINS WITH MINERALS, THERAPEUTIC TABLET PO SCH (08:56)
[2020-01-22] MEDS: MORPHINE SULFATE 15 MG IR TABLET PO PRN (12:46)
[2020-01-22 15:02] VITALS: BP 128/73
[2020-01-22] MEDS: TiZANidine HCL 4 MG TABLET PO SCH ×2 (15:08→20:19)
[2020-01-22] MEDS: SENNA 187 MG TABLET PO SCH (20:18)
[2020-01-22] MEDS: AMITRIPTYLINE HCL 25 MG TABLET PO SCH (20:19)
[2020-01-22 22:26] VITALS: BP 87/53
[2020-01-23] VITALS (16 sets, daily range): BP systolic 84–120; BP diastolic 50–74
[2020-01-23] MEDS: ACETAMINOPHEN 500 MG TABLET PO SCH ×3 (00:11→15:08)
[2020-01-23] MEDS: MORPHINE SULFATE 15 MG IR TABLET PO PRN ×3 (06:21→23:31)
[2020-01-23] MEDS: GABAPENTIN 300 MG CAPSULE PO SCH ×3 (06:21→21:02)
[2020-01-23] MEDS: TiZANidine HCL 4 MG TABLET PO SCH ×3 (07:21→21:48)
[2020-01-23] MEDS: MULTIVITAMINS WITH MINERALS, THERAPEUTIC TABLET PO SCH (08:28)
[2020-01-23] MEDS: ENOXAPARIN SODIUM 40 MG/0.4 ML PF SYRINGE SQ SCH (08:28)
[2020-01-23] MEDS: DOCUSATE SODIUM 250 MG CAPSULE PO SCH ×2 (08:28→21:02)
[2020-01-23] MEDS: POLYETHYLENE GLYCOL 3350 17 GM PACKET PO SCH (08:28)
[2020-01-23] MEDS: CALCIUM CIT/VITAMIN D3 200 MG-250 UNITS TABLET PO SCH ×2 (08:28→21:02)
[2020-01-23] MEDS: DULoxetine HCL 60 MG CAPSULE PO SCH (08:30)
[2020-01-23] MEDS: MORPHINE SULFATE 15 MG ER TABLET PO SCH ×2 (09:00→21:02)
[2020-01-23] MEDS ORDERED: SODIUM CHLORIDE 0.9% 1,000 ML IV ONE (09:45)
[2020-01-23 10:56] LABS: HEMATOCRIT 25.5 % (41-53); HEMOGLOBIN 8.4 g/dL (13.5-17.5); MEAN CORPUSCULAR HEMOGLOBIN 28.2 pg (26.0-34.0); MEAN CORPUSCULAR HGB CONC 33.1 G/dL (31.0-37.0); MEAN CORPUSCULAR VOLUME 85 fL (80-100); PLATELET COUNT (AUTO) 194 K/uL (150-450); RED BLOOD CELL COUNT(AUTO) 2.99 MIL/uL (4.50-5.90); RED CELL DISTRIBUTION WIDTH 16.1 % (11.5-14.5)
[2020-01-23 11:15] LABS: BAND NEUTROPHILS % (MANUAL) 3 % (0-5); EOSINOPHILS % (MANUAL) 1 % (1-6); LYMPHOCYTES % (MANUAL) 27 % (22-44); MONOCYTES % (MANUAL) 5 % (2-9); SEGMENTED NEUTROPHILS % 64 % (40-70)
[2020-01-23 11:16] LABS: ANION GAP 8 mmol/L (8-16); CALCIUM, TOTAL 7.5 mg/dL (8.8-10.5); CARBON DIOXIDE 26 mmol/L (22-29); CHLORIDE 102 mmol/L (98-107); CREATININE 0.57 mg/dL (0.60-1.30); GLOMERULAR FILTR. RATE CALC > 60 mL/min (>60); GLUCOSE,RANDOM 103 mg/dL (70-110); SODIUM SERUM 136 mmol/L (136-145); UREA NITROGEN, BLOOD 16 mg/dL (7-18)
[2020-01-23 16:20] LABS: GLUCOMETER DEV NAME(LOC) 6N.1; GLUCOSE,POINT OF CARE 100 MG/DL (70-110)
[2020-01-23] MEDS: SENNA 187 MG TABLET PO SCH (21:02)
[2020-01-23] MEDS: AMITRIPTYLINE HCL 25 MG TABLET PO SCH (21:02)
[2020-01-23] MEDS: 0.9% SODIUM CHLORIDE 10 ML SYRINGE IVP SCH (23:25)
[2020-01-23] MEDS: SODIUM CHLORIDE 0.9% 1,000 ML IV SCH (23:36)
[2020-01-24] VITALS (12 sets, daily range): BP systolic 95–135; BP diastolic 6–78
[2020-01-24] MEDS: ACETAMINOPHEN 500 MG TABLET PO SCH ×3 (00:05→15:09)
[2020-01-24] MEDS: GABAPENTIN 300 MG CAPSULE PO SCH ×3 (05:44→20:01)
[2020-01-24] MEDS: SODIUM CHLORIDE 0.9% 1,000 ML IV SCH ×2 (07:04→18:12)
[2020-01-24] MEDS: 0.9% SODIUM CHLORIDE 10 ML SYRINGE IVP SCH ×3 (07:07→23:07)
[2020-01-24] MEDS: ENOXAPARIN SODIUM 40 MG/0.4 ML PF SYRINGE SQ SCH (08:34)
[2020-01-24] MEDS: CALCIUM CIT/VITAMIN D3 200 MG-250 UNITS TABLET PO SCH ×2 (08:34→20:01)
[2020-01-24] MEDS: MULTIVITAMINS WITH MINERALS, THERAPEUTIC TABLET PO SCH (08:34)
[2020-01-24] MEDS: DOCUSATE SODIUM 250 MG CAPSULE PO SCH ×2 (08:34→20:01)
[2020-01-24] MEDS: DULoxetine HCL 60 MG CAPSULE PO SCH (08:34)
[2020-01-24] MEDS: TiZANidine HCL 4 MG TABLET PO SCH (08:35)
[2020-01-24] MEDS: POLYETHYLENE GLYCOL 3350 17 GM PACKET PO SCH (08:39)
[2020-01-24] MEDS: MORPHINE SULFATE 15 MG ER TABLET PO SCH ×2 (10:06→20:01)
[2020-01-24] MEDS: MORPHINE SULFATE 15 MG IR TABLET PO PRN ×3 (14:23→23:03)
[2020-01-24] MEDS: BACLOFEN 10 MG TABLET PO SCH ×2 (15:09→20:01)
[2020-01-24] MEDS: AMITRIPTYLINE HCL 25 MG TABLET PO SCH (20:01)
[2020-01-24] MEDS: SENNA 187 MG TABLET PO SCH (20:02)
[2020-01-25] VITALS (10 sets, daily range): BP systolic 116–144; BP diastolic 61–92
[2020-01-25] MEDS: ACETAMINOPHEN 500 MG TABLET PO SCH ×4 (00:03→23:22)
[2020-01-25] MEDS: SODIUM CHLORIDE 0.9% 1,000 ML IV SCH (00:06)
[2020-01-25] MEDS: MORPHINE SULFATE 15 MG IR TABLET PO PRN ×2 (05:04→23:22)
[2020-01-25] MEDS: GABAPENTIN 300 MG CAPSULE PO SCH ×3 (05:50→21:34)
[2020-01-25 07:52] LABS: BASOPHILS % (AUTO) 0.4 % (0.0-2.0); HEMATOCRIT 26.4 % (41-53); HEMOGLOBIN 8.5 g/dL (13.5-17.5); LYMPHOCYTES # (AUTO) 0.5 K/uL (1.0-4.8); LYMPHOCYTES % (AUTO) 14.9 % (22.0-44.0); MEAN CORPUSCULAR HEMOGLOBIN 27.4 pg (26.0-34.0); MEAN CORPUSCULAR HGB CONC 32.3 G/dL (31.0-37.0); MEAN CORPUSCULAR VOLUME 85 fL (80-100); MONOCYTES # (AUTO) 0.4 K/uL (0.1-1.0); NEUTROPHILS # (AUTO) 2.2 K/uL (1.8-7.7); NEUTROPHILS % (AUTO) 70.7 % (40.0-70.0); PLATELET COUNT (AUTO) 230 K/uL (150-450); RED BLOOD CELL COUNT(AUTO) 3.12 MIL/uL (4.50-5.90); RED CELL DISTRIBUTION WIDTH 16.1 % (11.5-14.5)
[2020-01-25 07:57] LABS: ANION GAP 6 mmol/L (8-16); CARBON DIOXIDE 27 mmol/L (22-29); CHLORIDE 107 mmol/L (98-107); GLOMERULAR FILTR. RATE CALC > 60 mL/min (>60); GLUCOSE,RANDOM 98 mg/dL (70-110); POTASSIUM 3.4 mmol/L (3.5-5.1); SODIUM SERUM 140 mmol/L (136-145); UREA NITROGEN, BLOOD 9 mg/dL (7-18)
[2020-01-25] MEDS: 0.9% SODIUM CHLORIDE 10 ML SYRINGE IVP SCH ×3 (08:34→23:23)
[2020-01-25] MEDS: POLYETHYLENE GLYCOL 3350 17 GM PACKET PO SCH (09:00)
[2020-01-25] MEDS: CALCIUM CIT/VITAMIN D3 200 MG-250 UNITS TABLET PO SCH ×2 (09:09→21:34)
[2020-01-25] MEDS: MULTIVITAMINS WITH MINERALS, THERAPEUTIC TABLET PO SCH (09:09)
[2020-01-25] MEDS: DOCUSATE SODIUM 250 MG CAPSULE PO SCH ×2 (09:09→21:33)
[2020-01-25] MEDS: BACLOFEN 10 MG TABLET PO SCH ×3 (09:09→20:17)
[2020-01-25] MEDS: MORPHINE SULFATE 15 MG ER TABLET PO SCH ×2 (09:10→21:34)
[2020-01-25] MEDS: ENOXAPARIN SODIUM 40 MG/0.4 ML PF SYRINGE SQ SCH (09:10)
[2020-01-25] MEDS: DULoxetine HCL 60 MG CAPSULE PO SCH (09:10)
[2020-01-25] MEDS ORDERED: POTASSIUM CHLORIDE 8 MEQ ER TABLET PO ONE (14:30)
[2020-01-25] MEDS: PANTOPRAZOLE SODIUM 40 MG DR TABLET PO SCH (21:34)
[2020-01-25] MEDS: SENNA 187 MG TABLET PO SCH (21:34)
[2020-01-25] MEDS: AMITRIPTYLINE HCL 25 MG TABLET PO SCH (21:34)
[2020-01-26 03:30] VITALS: BP 136/78
[2020-01-26] MEDS: GABAPENTIN 300 MG CAPSULE PO SCH ×3 (05:29→21:52)
[2020-01-26] MEDS: MORPHINE SULFATE 15 MG IR TABLET PO PRN ×4 (05:29→23:20)
[2020-01-26 07:28] VITALS: BP 134/83
[2020-01-26] MEDS: DOCUSATE SODIUM 250 MG CAPSULE PO SCH ×2 (07:29→21:52)
[2020-01-26] MEDS: ACETAMINOPHEN 500 MG TABLET PO SCH ×3 (07:29→20:15)
[2020-01-26] MEDS: MULTIVITAMINS WITH MINERALS, THERAPEUTIC TABLET PO SCH (07:30)
[2020-01-26] MEDS: DULoxetine HCL 60 MG CAPSULE PO SCH (07:30)
[2020-01-26] MEDS: ENOXAPARIN SODIUM 40 MG/0.4 ML PF SYRINGE SQ SCH (07:30)
[2020-01-26] MEDS: 0.9% SODIUM CHLORIDE 10 ML SYRINGE IVP SCH ×2 (07:30→15:19)
[2020-01-26] MEDS: CALCIUM CIT/VITAMIN D3 200 MG-250 UNITS TABLET PO SCH (07:30)
[2020-01-26] MEDS: BACLOFEN 10 MG TABLET PO SCH ×3 (07:30→20:16)
[2020-01-26] MEDS: MORPHINE SULFATE 15 MG ER TABLET PO SCH ×2 (07:30→21:52)
[2020-01-26] MEDS: POLYETHYLENE GLYCOL 3350 17 GM PACKET PO SCH (07:33)
[2020-01-26 12:52] VITALS: BP 120/79
[2020-01-26 15:19] VITALS: BP 134/88
[2020-01-26 19:00] VITALS: BP 111/62
[2020-01-26] MEDS: AMITRIPTYLINE HCL 25 MG TABLET PO SCH (21:52)
[2020-01-26] MEDS: SENNA 187 MG TABLET PO SCH (21:52)
[2020-01-26] MEDS: PANTOPRAZOLE SODIUM 40 MG DR TABLET PO SCH (21:52)
[2020-01-26 23:20] VITALS: BP 122/74
[2020-01-27] MEDS: CALCIUM CIT/VITAMIN D3 200 MG-250 UNITS TABLET PO SCH ×2 (00:48→10:07)
[2020-01-27] MEDS: 0.9% SODIUM CHLORIDE 10 ML SYRINGE IVP SCH (00:48)
[2020-01-27] MEDS: GABAPENTIN 300 MG CAPSULE PO SCH (05:55)
[2020-01-27 06:01] VITALS: BP 134/91
[2020-01-27] MEDS: MORPHINE SULFATE 15 MG IR TABLET PO PRN (06:01)
[2020-01-27 07:15] VITALS: BP 129/87
[2020-01-27] MEDS: DULoxetine HCL 60 MG CAPSULE PO SCH (07:16)
[2020-01-27] MEDS: BACLOFEN 10 MG TABLET PO SCH (07:16)
[2020-01-27] MEDS: MORPHINE SULFATE 15 MG ER TABLET PO SCH (07:16)
[2020-01-27] MEDS: ACETAMINOPHEN 500 MG TABLET PO SCH (07:19)
[2020-01-27] MEDS: ENOXAPARIN SODIUM 40 MG/0.4 ML PF SYRINGE SQ SCH (10:07)
[2020-01-27] MEDS: DOCUSATE SODIUM 250 MG CAPSULE PO SCH (10:07)
[2020-01-27] MEDS: POLYETHYLENE GLYCOL 3350 17 GM PACKET PO SCH (10:07)
[2020-01-27] MEDS: MULTIVITAMINS WITH MINERALS, THERAPEUTIC TABLET PO SCH (10:07)
[2020-01-27] MEDS ORDERED: GABA-1181 PO (10:49)
[2020-01-27] MEDS ORDERED: DOCU-342 PO (10:49)
[2020-01-27] MEDS ORDERED: [UNRECOGNIZED DRUG - CODE] PO (10:49)
[2020-01-27] MEDS ORDERED: SENN8.6T20 PO (10:49)
[2020-01-27] MEDS ORDERED: MORP15TA43 PO (10:49)
[2020-01-27] MEDS ORDERED: BACL10TA PO (10:49)
[2020-01-27] MEDS ORDERED: POLY90PO PO (10:49)
[2020-01-27] MEDS ORDERED: DULO40CA2 PO (10:49)
[2020-01-27] MEDS ORDERED: PANT-31 PO (10:49)
[2020-01-27] MEDS ORDERED: MULT-248 PO (10:49)
[2020-01-27] MEDS ORDERED: ACET-66 PO (10:49)
[2020-01-27] MEDS ORDERED: CALC-884 PO (10:49)
[2020-01-27] MEDS ORDERED: NALO4SPR NASAL (10:49)
[2020-01-27] MEDS ORDERED: AMIT75 PO (10:49)
[2020-01-27] MEDS ORDERED: ASPI-728 PO (10:52)
== END 2020-01-27 12:00 | disposition home health service (06) | DRG 565 ==
LOC: 4E 16:37 → 2WR 01-11 10:07
PROVIDERS: ADMIT Physical Medicine & Rehabilitation; ATTEND Physical Medicine & Rehabilitation
DX: D16.6 Benign neoplasm of vertebral column (principal); E22.2 Syndrome of inappropriate secretion of antidiuretic hormone; E46 Unspecified protein-calorie malnutrition; G82.20 Paraplegia, unspecified; D64.9 Anemia, unspecified; E83.51 Hypocalcemia; F41.9 Anxiety disorder, unspecified; Z83.3 Family history of diabetes mellitus
CPT/HCPCS: 72157; 72158; 85007; 85379; 85651; 86140; 87081; 93005; 93970; 97110; 97112; 97116; 97140; 97163; 97166; 97530; 97535; 99366; A9585; J1100; J1170; J1650; J7030; J7509; J8540